=== PATIENT | female | born 1945 | race Hispanic/Latino ===

== ENCOUNTER 2025-05-15 09:50 | Emergency (ER) | payer OTHER, MEDICAID ==
[2025-05-15 10:47] LABS: #Basophils 0.05 10x3/uL (0.0-0.2); #Eosinophils Less than 0.03 10x3/uL (0.0-0.5); #Monocytes 0.74 10x3/uL (0.0-1.1); #Neutrophils 2.93 10x3/uL (1.5-8.4); %Basophils 0.8 % (0.0-2.0); %Eosinophils 0.0 % (0.0-6.0); %Lymphocytes 39.5 % (18.0-47.0); %Monocytes 12.0 % (0.0-10.0); %Neutrophils 47.4 % (40.0-75.0); Hematocrit 45.6 % (34.9-44.5); Hemoglobin 14.8 g/dL (12.0-15.5); Mean Corpuscular Hemoglobin 28.8 pg (27.0-33.0); Mean Corpuscular Volume 88.9 fL (81.6-98.3); Platelet Count 216 10x3/uL (150-450); Red Blood Cell (RBC) Count 5.13 10x6/uL (3.90-5.03); White Blood Cell (WBC) Count 6.18 10x3/uL (3.5-10.5)
[2025-05-15 10:56] LABS: ALT (SGPT) 36 U/L (Less than 34); AST (SGOT) 37 U/L (11-34); Albumin 4.1 g/dL (3.1-4.5); Alkaline Phosphatase 95 U/L (40-110); Anion Gap 13 mmol/L (10-20); BUN (Urea Nitrogen) 30 mg/dL (9.8-20.1); Bilirubin, Total 0.6 mg/dL (0.3-1.2); Calc. Creatinine Clearance 0 mL/min (70-130); Calcium 9.4 mg/dL (7.8-10.44); Carbon Dioxide 29 mmol/L (23-31); Chloride 104 mmol/L (98-107); Globulin 2.5 g/dL (2.4-3.5); Glucose 118 mg/dL (83-110); Potassium 4.3 mmol/L (3.5-5.1); Sodium 142 mmol/L (136-145)
[2025-05-15 11:00] LABS: Troponin I Less than 0.010 ng/mL (< 0.028)
[2025-05-15] MEDS ORDERED: Gabapentin 300 MG CAP ONE (11:46)
[2025-05-15 13:04] LABS: Troponin I Less than 0.010 ng/mL (< 0.028)
== END 2025-05-15 13:43 | disposition home or self-care (01) ==
LOC: CSHERS 09:50
DX: M54.31 Sciatica, right side (principal); R07.89 Other chest pain; I10 Essential (primary) hypertension; E78.5 Hyperlipidemia, unspecified; E03.9 Hypothyroidism, unspecified; Z79.899 Other long term (current) drug therapy
CPT/HCPCS: 71045; 80053; 84484; 85025; 93005